=== PATIENT | female | born 1975 | race Caucasian/White ===

== ENCOUNTER 2023-05-29 22:09 | Emergency (ER) | payer MEDICAID, OTHER ==
[~2023-05-29] VITALS: Ht 160 cm; Wt 65.0 kg
[2023-05-29 22:13] VITALS: O2SAT 97
[2023-05-29 22:58] LABS: BASOPHILS % 0.3 % (0.0-2.0); EOSINOPHILS % 0.6 % (0.0-5.0); HEMATOCRIT. 36.1 % (36.0-48.0); HEMOGLOBIN. 11.6 g/dL (12.0-16.0); LYMPHOCYTES % 16.5 % (20.0-50.0); MEAN CORPUSCULAR VOLUME 74.5 fL (81.0-99.0); MEAN PLATELET VOLUME 8.7 fl (7.4-10.4); MONOCYTES % 7.1 % (2.0-8.0); NEUTROPHILS % 75.5 % (40.0-76.0); PLATELET 250 x1000/uL (130-400); RED BLOOD CELL COUNT 4.85 mill/uL (4.2-5.4); RED CELL DISTRIBUTION WIDTH 18.9 % (11.6-14.6)
[2023-05-29 23:19] LABS: CHLORIDE 105 mEq/L (98-107)
[2023-05-30] MEDS ORDERED: ONDANSETRON HCL 4MG TABLET PO ONE (01:45)
[2023-05-30] MEDS ORDERED: POTASSIUM CHLORIDE 20MEQ TABLET SR PO ONE (02:15)
[2023-05-30] MEDS ORDERED: ONDA4TAB50 MT (03:03)
[2023-05-30] MEDS ORDERED: FAMO-135 MT (03:03)
[2023-05-30 03:44] VITALS: BP 153/87; PULSE 99; RESP 18; TEMP 98
== END 2023-05-30 03:45 | disposition home or self-care (01) ==
LOC: ER 22:09
DX: K29.70 Gastritis, unspecified, without bleeding (principal); D64.9 Anemia, unspecified; E11.9 Type 2 diabetes mellitus without complications
CPT/HCPCS: 99283; 80053; 83690; 85025; 36415; Q0162